=== PATIENT | male | born 1960 | race Caucasian/White ===

== ENCOUNTER → 2024-01-12 07:07 | Outpatient (REF) | payer MEDICARE, OTHER, SELFPAY | LOC: HWRCS 07:07 | PROVIDERS: ATTENDING PHYSICIAN Student in an Organized Health Care Education/Training Program; FAMILY PHYSICIAN Internal Medicine | DX: I10 Essential (primary) hypertension (principal) | CPT/HCPCS: 93306 ==

== ENCOUNTER 2024-05-01 16:58 | Emergency (ER) | payer MEDICARE, OTHER, SELFPAY ==
[2024-05-01 17:09] VITALS: BP 132/84
--- NOTE | 2024-05-01 18:01 | ED.GENMED ---
History of Present Illness
General
Chief Complaint: Ear Problem
Source: patient
Exam Limitations: none
Time Seen by Provider: 05/01/24 17:43
History of Present Illness
History of Present Illness:
63yoM with a history of hypertension, hyperlipidemia, and Meniere's disease presenting with his for evaluation of ear pain. Patient has been having postnasal drip and a lot of mucous in the back of his throat over the past few days. He started
with right ear pain yesterday. He states his ear was throbbing and making it difficult for him to sleep last night. He denies any drainage or hearing loss. He was eating a grilled cheese this afternoon and was having difficulty swallowing. He had to
swallow some water to help it get down. He denies any foreign body sensation of the throat and denies any prior issues with swallowing. He made an appt with ENT but was unable to get in until May. No fevers.
Phy Exam
General Physical Exam
General Presentation: well appearing and no apparent distress
General age: appears stated age
General Skin: warm and dry
General Habitus: normal
General Mental: alert
ENT Exam
ENT Exam: pharynx normal (No tonsillar enlargement or exudates noted. Uvula midline. Normal phonation. Tolerating oral secretions without difficulty. ), neck supple, normocephalic and other (R ear: Canal is edematous compared to L ear. +tenderness
with palpation of the tragus. No ear drainage noted. TM appears normal. No mastoid erythema or tenderness. )
Cardiovascular Exam
Cardiovascular Exam: regular rate/rhythm
Pulmonary Exam
Pulmonary Exam: lungs clear, no respiratory distress, no rales, no crackles, no rhonchi and no wheezing
Neurological Exam
Neurological Exam: alert
[place] Coma Scale
Eye Opening: Spontaneous
Verbal Response: Oriented
Motor Response: Obeys Commands
GCS Total Score: 15
Skin Exam
Skin Exam: normal color and warm/dry
Psychiatric Exam
Psychiatric Exam: normal mood/affect
Course
Orders/Labs/Results
Orders:
Orders
05/01/24 18:04
Rapid Strep Group A Urgent
JONA Source: Throat/Pharynx
Specimen Description:
Date Specimen was Collected: 05/01/24
Time Specimen was Collected: 18:02
Vital Signs
Initial and Last Documented VS:
Initial Vital Signs
Temp Pulse Resp BP Pulse Ox
98.9 F 99 18 132/84 97
05/01/24 17:09 05/01/24 17:09 05/01/24 17:09 05/01/24 17:09 05/01/24 17:09
Last Documented Vital Signs
Temp Pulse Resp BP Pulse Ox
98.9 F 98 18 136/84 97
05/01/24 17:09 05/01/24 18:51 05/01/24 18:51 05/01/24 18:51 05/01/24 18:51
MDM/Problems Addressed
Differential Diagnosis Includes:
63yoM here with R ear pain since yesterday. Started with postnasal drip/mucous a few days ago. Had some trouble swallowing after eating a sandwich today which has resolved. VSS. He is well-appearing in no acute distress. There is some edema of the
right ear canal on exam without drainage. Tympanic membrane appears normal. Very mild erythema to posterior oropharynx. Differential diagnosis includes but is not limited to: Viral illness, otitis externa, otitis media
Strep testing obtained which is negative. No signs of otitis media on exam to warrant oral antibiotics. Ciprodex drops prescribed due to canal edema. Supportive care discussed. He has an appointment scheduled with ENT in May. He was advised
to follow-up with his PCP for reassessment. ED return precautions discussed. Patient in agreement with plan and was discharged in stable condition.
*Critical Care Note
Total Time (30-74mins, 75-104mins- exclusive of procedures): Not Applicable
ED Attending Note
-
Portions of this chart may have been created with voice recognition software.� Occasional wrong word or��sound alike� substitutions may have occurred due to the inherent limitations of voice recognition software.
Discharge Plan
Departure
Patient Disposition: Home (Routine Discharge)
Date of Disposition: 05/01/24
Time of Disposition: 18:32
Patient with high blood pressure during this ER visit?: No
Discharge Problem:
Acute pain of left ear
Instructions: Outer Ear Infection (DC)
Prescriptions:
New
ciprofloxacin-dexamethasone 0.3-0.1 % drops,suspension
4 drp RIGHT EAR DAILY 7 Days Qty: 7.5 0RF
No Action
atorvastatin 40 MG tablet
40 mg PO QPM
enalapril maleate 10 MG tablet
10 mg PO BID
aspirin 81 MG tablet,delayed release (DR/EC)
81 mg PO DAILY
sodium bicarbonate 650 MG tablet
650 mg PO BID
Cholecalciferol (Vitamin D3) [Vitamin D3] 50 MCG Capsule
50 mcg PO DAILY
Referrals:
Mark Palma MD [Family Provider] -
Alfonzo Sousa MD [Active] -
Activity Restrictions/Additional Instructions:
Use ear drops as prescribed. Use Mucinex for congestion. You may also use Afrin for up to 3 days.
Please follow-up with your family doctor and ENT. Return to the ER with any new or worsening symptoms.
Interventions
Interventions:
*Risk Screen - Suicide Last Done: 05/01/24 17:39
*General Assessment Last Done: 05/01/24 17:39
*Neglect/Abuse Screening Last Done: 05/01/24 17:39
*ED COVID-19 Vaccine History Last Done: 05/01/24 17:39
*Nursing Disposition Last Done: 05/01/24 18:51
Discharge Date and Time
Discharge Date/Time: 05/01/24 18:53
Print Language: LAO
[2024-05-01 18:51] VITALS: BP 136/84
== END 2024-05-01 18:53 | disposition home or self-care (01) ==
LOC: EMR 16:58
PROVIDERS: EMERGENCY PHYSICIAN Emergency Medicine; FAMILY PHYSICIAN Internal Medicine
DX: H92.03 Otalgia, bilateral (principal); E78.5 Hyperlipidemia, unspecified; I10 Essential (primary) hypertension
CPT/HCPCS: 99283; 87070; 87880